=== PATIENT | female | born 1985 | race Caucasian/White ===

== ENCOUNTER → 2017-03-08 | Outpatient (CLI) | payer BC ==
--- NOTE | 2017-03-08 13:25 | US ---
EXAMINATION: Ultrasound guided left thyroid lobe nodule biopsy HISTORY: Mass COMPARISON: 07/26/2016 TECHNIQUE: The procedure, risks, and benefits were discussed with the patient. Written informed cons ent was obtained. The neck was sterilely prepped and draped. 1% lidocaine was administered for local anesthesia. Using ultrasound guidance 2 25-gauge fine-needle aspirates were obtained and fixed slig ht. Additional 2 18-gauge core biopsies were obtained using ultrasound guidance. These were put into formalin. No immediate complications. IMPRESSION: Successful ultrasound-guided biopsy of a left thyroid lobe nodule.
== END | disposition home or self-care (01) ==
LOC: MW.US 10:27
PROVIDERS: ATTEND Internal Medicine Endocrinology, Diabetes & Metabolism
DX: E04.1 Nontoxic single thyroid nodule (principal); E07.9 Disorder of thyroid, unspecified
CPT/HCPCS: 10022; 60100; 60100-LT; 76942-26-LT; 76942-LT; 88173; 88305

== ENCOUNTER → 2017-03-14 | Outpatient (CLI) | payer BC ==
--- NOTE | 2017-03-16 14:49 | NM ---
EXAM DATE: 03/14/17 PATIENT'S AGE: 31 Patient: QI CASTILLO Facility: [place], [place] Site Site : [id number] Study: NM Thyroid [id number]/26/2017 1:16:59 PM Ordering Physician: ADORE Final Report: Indication: Patient with a history of thyrotoxicosis. History of the left thyroid nodule status post biopsy on 03/08/2017 Technique: 347 microcuries of iodine 123 has been given orally 24 hours prior to imaging. Comparison: Ultrasound dated 07/26/2016. Findings: The calculated 24 uptake is 18.9 percent. Normal is between 10 and 30 percent. There is relatively homogeneous uptake within the right thyroid. There is relatively poor uptake demonstrated in the left thyroid with a large cold nodule in the mid and lower pole of the left thyroid as correlated with the previous ultrasound. There is some mild uptake in the upper pole of the left thyroid. The isthmus appears mildly prominent. Impression: 1. There is a normal 24 uptake at 18.9 percent. 2. There is a large appearing cold nodule in the mid and lower portion of the left thyroid as correlated with the ultrasound from July 2016. By history this has been biopsied and this finding should be correlated with the pathology results. There is some mild uptake in the upper pole of the left thyroid. Dictated by Curtis Marte MD @ Mar 16 2017 8:19AM (Electronic Signature) Report Signed by Proxy. TALI
== END ==
LOC: MW.NM 11:48
PROVIDERS: ATTEND Internal Medicine Endocrinology, Diabetes & Metabolism
DX: E05.90 Thyrotoxicosis, unspecified without thyrotoxic crisis or storm (principal)
CPT/HCPCS: 78014; A9516

== ENCOUNTER → 2017-03-21 | Outpatient (CLI) | payer BC ==
--- NOTE | 2017-03-22 11:47 | US ---
EXAMINATION: Thyroid ultrasound HISTORY: Malignant neoplasm of the thyroid COMPARISON: 07/26/2016 TECHNIQUE: Grayscale and color Doppler images obtained of the thyroid gland FINDINGS: The right thyroid lobe measures 4 x 1.2 x 1.4 cm, the left thyroid lobe measures at least 6.4 x 6.2 x 4.2 cm. The left thyroid lobe predominantly consists of a large hypoechoic mass with pun ctate shadowing foci consistent with microcalcifications. The echotexture of the right thyroid lobe appears normal. Normal color Doppler flow within the right thyroid lobe. The isthmus also appears no rmal at 2 mm. IMPRESSION: 1. Large heterogeneous left thyroid nodule with microcalcifications, suspicious for malignancy. 2. Grossly unremarkable and not enlarged right thyroid lobe.
== END ==
LOC: MW.US 14:52
PROVIDERS: ATTEND Internal Medicine Endocrinology, Diabetes & Metabolism
DX: C73 Malignant neoplasm of thyroid gland (principal); E04.9 Nontoxic goiter, unspecified
CPT/HCPCS: 76536-26; 76536-50

== ENCOUNTER → 2017-03-23 | Outpatient (CLI) | payer BC ==
--- NOTE | 2017-03-24 09:33 | US ---
EXAMINATION: Ultrasound Cervical chain lymph nodes survey HISTORY: Thyroid cancer COMPARISON: 03/21/2017 TECHNIQUE: Grayscale and color Doppler images obtained. FINDINGS/IMPRESSION: There is no appreciable cervical lymphadenopathy noted within the neck. No abno rmal masses or asymmetries. No abnormal color Doppler flow.
== END ==
LOC: MW.US 11:15
PROVIDERS: ATTEND Internal Medicine Endocrinology, Diabetes & Metabolism
DX: E05.90 Thyrotoxicosis, unspecified without thyrotoxic crisis or storm (principal); Z53.9 Procedure and treatment not carried out, unspecified reason